=== PATIENT | female | born 1985 | race African-American/Black ===

== ENCOUNTER 2016-12-12 15:29 | Emergency (ER) | payer OTHER ==
[~2016-12-12] VITALS: Ht 177.8 cm; Wt 81.6 kg
[2016-12-12 16:41] LABS: BILIRUBIN,URINE SMALL (NEG); GLUCOSE,URINE NEGATIVE (NEG); NITRITE,URINE NEGATIVE (NEG); PROTEIN,URINE 100 mg/dL (NEG-TRACE); UROBILINOGEN,URINE 0.2 mg/dL (0.2 mg/dL)
[2016-12-12] MEDS ORDERED: IV NORMAL SALINE 1000ML BAG 1,000 ML IV ONE (16:45)
[2016-12-12 16:47] LABS: BARBITURATES NEG (NEG); BENZODIAZEPINES NEG (NEG); CANNABINOIDS POS (NEG); COCAINE NEG (NEG); METHADONE NEG (NEG); OPIATES NEG (NEG); PHENCYCLIDINE NEG (NEG)
[2016-12-12 16:48] LABS: BACTERIA,URINE FEW /HPF (0-FEW); RBC,URINE 0 /HPF (0-2); SQUAMOUS EPITHELIAL CELL,UR FEW /LPF
[2016-12-12 17:10] LABS: BASO # 0.1 x10^3/uL (0.0-0.2); BASO % 1 % (0-3); EOS % 1 % (0-3); HEMATOCRIT 35.4 % (36.0-47.0); HEMOGLOBIN 11.8 g/dL (12.0-15.5); LYMPH # 2.7 x10^3/uL (1.0-4.8); LYMPH % 23 % (24-48); MEAN CORPUSCULAR HEMOGLOBIN 32 pg (25-35); MEAN CORPUSCULAR HGB CONC 33 g/dL (31-37); MEAN CORPUSCULAR VOLUME 95 fL (79-100); MONO % 7 % (0-9); NEUT % 68 % (31-73); PLATELET COUNT 174 x10^3/uL (140-400); RED BLOOD COUNT 3.73 x10^6/uL (3.50-5.40); RED CELL DISTRIBUTION WIDTH 13.9 % (11.5-14.5); WHITE BLOOD COUNT 11.4 x10^3/uL (4.0-11.0)
[2016-12-12 17:24] LABS: CALCIUM 8.8 mg/dL (8.5-10.1); CREATININE 0.5 mg/dL (0.6-1.0); GFR 175.3; POTASSIUM 4.1 mmol/L (3.5-5.1)
[2016-12-12] MEDS ORDERED: ONDANSETRON PF 4 MG/2 ML VIAL. ONE (17:26)
[2016-12-12] MEDS ORDERED: ONDANSETRON PF 4 MG/2 ML VIAL. IV ONE (18:00)
[2016-12-12 18:34] VITALS: BP 114/63
--- NOTE | 2016-12-12 18:59 | PHYS DOC ---
Past Medical History Past Medical History: No Pertinent History Past Surgical History: No Surgical History Alcohol Use: None Drug Use: Marijuana Adult General Chief Complaint Chief Complaint: DIZZY/LIGHT HEADED HPI HPI Patient is a 31 year old female 2 para 2 who presents today with dizziness intermittently since yesterday and one time episode of vomiting. Patient states she does not know she is because her last menstrual cycle was in the beginning of July 2015. She states she did a test at home a couple months ago and it was positive but she never followed up about it. Patient denied any abdominal pain, urgency frequency or dysuria. She states she just feels tired. She states she would like a test. Review of Systems Review of Systems Constitutional: Denies fever or chills [] Eyes: Denies change in visual acuity, redness, or eye pain [] HENT: Denies nasal congestion or sore throat [] Respiratory: Denies cough or shortness of breath [] Cardiovascular: No additional information not addressed in HPI [] GI: Possible , vomiting : See history of present illness Musculoskeletal: Denies back pain or joint pain [] Integument: Denies rash or skin lesions [] Neurologic: Dizziness Endocrine: Denies polyuria or polydipsia [] Current Medications Current Medications Current Medications Medications (Trade) Dose Ordered Sig/Miguel Start Time Stop Time Status Last Admin Dose Admin Ondansetron HCl (Zofran) 4 mg 1X ONCE 12/12/16 18:00 12/12/16 18:01 DC 12/12/16 17:53 4 MG Sodium Chloride 1,000 ml @ 1,000 mls/hr 1X ONCE 12/12/16 16:45 12/12/16 17:44 DC 12/12/16 17:06 1,000 MLS/HR Allergies Allergies Allergies Coded Allergies Type Severity Reaction Last Updated Verified No Known Drug Allergies 12/12/16 No Physical Exam Physical Exam Constitutional: Well developed, well nourished, no acute distress, non-toxic appearance. [] HENT: Normocephalic, atraumatic, bilateral external ears normal, oropharynx moist, no oral exudates, nose normal. [] Eyes: PERRLA, EOMI, conjunctiva normal, no discharge. [] Neck: Normal range of motion, no tenderness, supple, no stridor. [] Cardiovascular:Heart rate regular rhythm, no murmur [] Lungs & Thorax: Bilateral breath sounds clear to auscultation [] Abdomen: Rounded abdomen suspicious for . Bowel sounds normal, soft, no tenderness, no masses, no pulsatile masses. [] Skin: Warm, dry, no erythema, no rash. [] Back: No tenderness, no CVA tenderness. [] Extremities: No tenderness, no cyanosis, no clubbing, ROM intact, no edema. [] Neurologic: Alert and oriented X 3, normal motor function, normal sensory function, no focal deficits noted. [] Psychologic: Affect normal, judgement normal, mood normal. [] Current Patient Data Vital Signs Vital Signs Date Time Temp Pulse Resp B/P (MAP) Pulse Ox O2 Delivery O2 Flow Rate FiO2 12/12/16 18:34 68 114/63 (80) 98 Room Air 12/12/16 16:29 98.6 18 98.6 Lab Values Laboratory Tests Test 12/12/16 16:26 12/12/16 17:02 Urine Collection Type Unknown Urine Color [place] Urine Clarity Turbid Urine pH 6.0 Urine Specific [place] >=1.030 Urine Protein 100 mg/dL (NEG-TRACE) Urine Glucose (UA) Negative mg/dL (NEG) Urine Ketones (Stick) 15 mg/dL (NEG) Urine Blood Negative (NEG) Urine Nitrite Negative (NEG) Urine Bilirubin Small (NEG) Urine Urobilinogen Dipstick 0.2 mg/dL (0.2 mg/dL) Urine Leukocyte Esterase Negative (NEG) Urine RBC 0 /HPF (0-2) Urine WBC 1-4 /HPF (0-4) Urine Squamous Epithelial Cells Few /LPF Urine Bacteria Few /HPF (0-FEW) Urine Mucus Marked /LPF Urine Opiates Screen Neg (NEG) Urine Methadone Screen Neg (NEG) Urine Barbiturates Neg (NEG) Urine Phencyclidine Screen Neg (NEG) Urine Amphetamine/Methamphetamine Neg (NEG) Urine Benzodiazepines Screen Neg (NEG) Urine Cocaine Screen Neg (NEG) Urine Cannabinoids Screen Pos (NEG) Urine Ethyl Alcohol Neg (NEG) White Blood Count 11.4 x10^3/uL (4.0-11.0) H Red Blood Count 3.73 x10^6/uL (3.50-5.40) Hemoglobin 11.8 g/dL (12.0-15.5) L Hematocrit 35.4 % (36.0-47.0) L Mean Corpuscular Volume 95 fL (79-100) Mean Corpuscular Hemoglobin 32 pg (25-35) Mean Corpuscular Hemoglobin Concent 33 g/dL (31-37) Red Cell Distribution Width 13.9 % (11.5-14.5) Platelet Count 174 x10^3/uL (140-400) Neutrophils (%) (Auto) 68 % (31-73) Lymphocytes (%) (Auto) 23 % (24-48) L Monocytes (%) (Auto) 7 % (0-9) Eosinophils (%) (Auto) 1 % (0-3) Basophils (%) (Auto) 1 % (0-3) Neutrophils # (Auto) 7.7 x10^3uL (1.8-7.7) Lymphocytes # (Auto) 2.7 x10^3/uL (1.0-4.8) Monocytes # (Auto) 0.8 x10^3/uL (0.0-1.1) Eosinophils # (Auto) 0.2 x10^3/uL (0.0-0.7) Basophils # (Auto) 0.1 x10^3/uL (0.0-0.2) Maternal Serum HCG Beta Subunit 3783 mIU/mL (0-6) H Sodium Level 139 mmol/L (136-145) Potassium Level 4.1 mmol/L (3.5-5.1) Chloride Level 105 mmol/L (98-107) Carbon Dioxide Level 24 mmol/L (21-32) Anion Gap 10 (6-14) Blood Urea Nitrogen 7 mg/dL (7-20) Creatinine 0.5 mg/dL (0.6-1.0) L Estimated GFR (Cockcroft-Gault) 175.3 Glucose Level 78 mg/dL (70-99) Calcium Level 8.8 mg/dL (8.5-10.1) Ethyl Alcohol Level < 10 mg/dL (0-10) Laboratory Tests 12/12/16 17:02 Laboratory Tests 12/12/16 17:02 EKG EKG [] Radiology/Procedures Radiology/Procedures []PROCEDURE: PREG MORE THAN OR EQ TO 14 WKS ultrasound more than or equal to 14 weeks HISTORY: Nausea, COMPARISON: No previous relevant examinations available FINDINGS: Multiple transabdominal sonographic images of the uterus are submitted. There is a single intrauterine fetus in cephalic presentation. Cervix measured 5.4 cm. There is posterior placenta. There is four-chamber view of the heart. There is detectable cardiac activity 158 bpm. No obvious abnormality is identified in the demonstrated spine. Lateral ventricle measures 0.4 cm. Cisterna magna measured 0.5 cm. Cerebellum measured 2.58 cm. There are more prominent right parametrial vessels, ovaries not demonstrated. No free fluid is demonstrated. 2 upper and lower extremities were visualized. There is visualization of stomach. There is three-vessel cord. 2 kidneys were seen. Amniotic fluid volume is within normal limits. Urinary bladder is visualized. Midline nose and lips were visualized. Biometry data are as follows: Biparietal diameter 6.03 cm corresponds with 24 weeks 4 days Head circumference 22.01 cm corresponds with 24 weeks 0 days Abdominal circumference 19.9 7 cm corresponds with 24 weeks 4 days. Femur length 4.3 cm corresponds with 24 weeks 2 days Estimated weight 699 g +/- 103 g. Adjusted ultrasound age 24 weeks 3 days with estimated delivery date of 03/31/2017. LMP data is not known. IMPRESSION: 1. There is a single viable intrauterine fetus, adjusted ultrasound age of 24 weeks 3 days with estimated delivery date 03/31/2017. Electronically signed by: Jason Fuentes MD (12/12/2016 7:41 PM) DICTATED and SIGNED BY: JASON FUENTES MD DATE: 12/12/161934 CC: PANCHITO ALFRED APRN; NO PCP; NON,STAFF ~ Course & Med Decision Making Course & Med Decision Making Pertinent Labs and Imaging studies reviewed. (See chart for details) This is a 31-year-old female patient who presents today stating she has had dizziness for 2 days and one episode of vomiting. Patient states her last menstrual cycle was June 2016. She states she did a test at home it was positive this was months ago but she never followed up. Patient denied any abdominal pain, vaginal bleeding, urgency frequency or dysuria. Positive urine hCG, [id number]. Wet prep with no acute findings. Urine analysis is negative for infection but noted for dehydration with specific gravity greater than 1.030, 15 ketones and small amount of bilirubin. Patient was given IV fluid and Zofran in the ED. OB ultrasound shows IUP at 24 wks 3 days. Patient has no complaints right now. She is very stable. I gave her an PRACTICAL NURSING FACULTY. She states she has another one she prefers to f/u with. Recommended she follows up as soon as she can. She was provided return precautions and discharged in stable condition. Dragon Disclaimer Dragon Disclaimer This electronic medical record was generated, in whole or in part, using a voice recognition dictation system. Departure Departure Impression: Primary Impression: Additional Impression: Vomiting affecting Disposition: HOME, SELF-CARE Condition: STABLE Referrals: NO PCP (PCP) NAE URENA Jr, MD Follow-up with the provided PRACTICAL NURSING FACULTY on Thursday next week Patient Instructions: ABCs of , Morning Sickness, [id number] Additional Instructions: Your ultrasound shows you are 24 weeks 2 days . We highly recommend you follow-up with the provided PRACTICAL NURSING FACULTY as soon as possible. We sent you home with medicines to help with nausea or vomiting. Push fluids. Take the medicines as needed. Come back to the ED at any point to have any concerns especially any vaginal bleeding and abdominal pain or worsening nausea vomiting. Scripts Promethazine Hcl (PROMETHAZINE HCL) 25 Mg Tablet 1 TAB PO PRN Q6HRS, #20 TAB Prov: PANCHITO ALFRED APRN 12/12/16 Ondansetron (ZOFRAN ODT) 4 Mg Tab.rapdis 1 TAB SL Q8HRS, #15 TAB Prov: PANCHITO ALFRED APRN 12/12/16 Problem Qualifiers Primary Impression: Weeks of gestation: 25 weeks Qualified Codes: Z3A.25 - 25 weeks gestation of PANCHITO ALFRED APRN December 12, 2016 18:59
--- NOTE | 2016-12-12 19:44 | RAD ---
ultrasound more than or equal to 14 weeks HISTORY: Nausea, COMPARISON: No previous relevant examinations available FINDINGS: Multiple transabdominal sonographic images of the uterus are submitted. There is a single intrauterine fetus in cephalic presentation. Cervix measured 5.4 cm. There is posterior placenta. There is four-chamber view of the heart. There is detectable cardiac activity 158 bpm. No obvious abnormality is identified in the demonstrated spine. Lateral ventricle measures 0.4 cm. Cisterna magna measured 0.5 cm. Cerebellum measured 2.58 cm. There are more prominent right parametrial vessels, ovaries not demonstrated. No free fluid is demonstrated. 2 upper and lower extremities were visualized. There is visualization of stomach. There is three-vessel cord. 2 kidneys were seen. Amniotic fluid volume is within normal limits. Urinary bladder is visualized. Midline nose and lips were visualized. Biometry data are as follows: Biparietal diameter 6.03 cm corresponds with 24 weeks 4 days Head circumference 22.01 cm corresponds with 24 weeks 0 days Abdominal circumference 19.9 7 cm corresponds with 24 weeks 4 days. Femur length 4.3 cm corresponds with 24 weeks 2 days Estimated weight 699 g +/- 103 g. Adjusted ultrasound age 24 weeks 3 days with estimated delivery date of 03/31/2017. LMP data is not known. IMPRESSION: 1. There is a single viable intrauterine fetus, adjusted ultrasound age of 24 weeks 3 days with estimated delivery date 03/31/2017. Electronically signed by: Fuad Ruiz MD (12/12/2016 7:41 PM)
[2016-12-12] MEDS ORDERED: ONDA4TAB10 SL (20:08)
[2016-12-12] MEDS ORDERED: PROM25TA10 PO (20:09)
== END 2016-12-12 20:36 | disposition home or self-care (01) ==
LOC: ER 15:29
DX: O21.9 Vomiting of pregnancy, unspecified (principal); R42 Dizziness and giddiness; F12.10 Cannabis abuse, uncomplicated; Z3A.24 24 weeks gestation of pregnancy
CPT/HCPCS: 36415; 76805; 80048; 80305; 80320; 81001; 81025; 84702; 85027; 96361; 96374; 99285; J2405; J7030; 84703; G0480; G0481

== ENCOUNTER 2017-02-04 17:43 | Inpatient (IN) | payer OTHER ==
[~2017-02-04 17:43] MED LIST: ONDA4TAB10 SL; PROM25TA10 PO
[2017-02-04 18:26] LABS: NEG OBC AMNIO NEG; POS OBC AMNIO POS
[2017-02-04] MEDS ORDERED: OXYTOCIN 30 UNIT/500 ML PREMIX 500 ML IV PRN (18:30)
[2017-02-04] MEDS ORDERED: LIDOCAINE 1% PF 30 ML VIAL. INJ PRN (18:30)
[2017-02-04] MEDS ORDERED: MAGNESIUM SULFATE 4GM 100 ML IV ONE (18:30)
[2017-02-04] MEDS ORDERED: fentaNYL PF VIAL 100 MCG/2 ML VIAL IV PRN (18:30)
[2017-02-04] MEDS ORDERED: MAGNESIUM SULFATE 2GM 50 ML IV ONE (18:30)
[2017-02-04] MEDS ORDERED: 0.9 % SODIUM CHLORIDE 10 ML DISP.SYRIN. IV PRN (18:30)
[2017-02-04] MEDS ORDERED: IBUPROFEN 600 MG TABLET. PO PRN (18:30)
[2017-02-04] MEDS ORDERED: TERBUTALINE 1 MG/ML VIAL. SQ PRN (18:30)
[2017-02-04] MEDS: IV RINGERS,LACTATED 1000ML 1,000 ML IV SCH (18:37)
[2017-02-04] MEDS ORDERED: IV RINGERS,LACTATED 1000ML 1,000 ML IV SCH (19:00)
[2017-02-04] MEDS ORDERED: MAGNESIUM SULFATE IV ONE (19:30)
[2017-02-04] MEDS ORDERED: BETAMET ACET&NA PHOS 30 MG/5 ML VIAL. IM SCH (19:30)
[2017-02-04] MEDS ORDERED: NORMAL SALINE IV ONE (19:30)
[2017-02-04 19:42] LABS: BILIRUBIN,URINE NEGATIVE (NEG); GLUCOSE,URINE NEGATIVE (NEG); NITRITE,URINE NEGATIVE (NEG); PROTEIN,URINE NEGATIVE (NEG-TRACE); UROBILINOGEN,URINE 0.2 mg/dL (0.2 mg/dL)
[2017-02-04 19:50] LABS: BARBITURATES NEG (NEG); BENZODIAZEPINES NEG (NEG); CANNABINOIDS POS (NEG); COCAINE NEG (NEG); METHADONE NEG (NEG); OPIATES NEG (NEG); PHENCYCLIDINE NEG (NEG)
[2017-02-04 19:53] LABS: BACTERIA,URINE 0 /HPF (0-FEW); RBC,URINE 0 /HPF (0-2); SQUAMOUS EPITHELIAL CELL,UR FEW /LPF; WBC,URINE 0 /HPF (0-4)
[2017-02-04] MEDS: MAGNESIUM SULFATE 20GM 500 ML IV SCH (19:54)
[2017-02-04] MEDS: AMPICILLIN SODIUM 2 GM in IV NORMAL SALINE 100ML 100 ML IV SCH (19:55)
[2017-02-04 20:26] LABS: BASO # 0.1 x10^3/uL (0.0-0.2); BASO % 1 % (0-3); EOS % 2 % (0-3); HEMATOCRIT 32.2 % (36.0-47.0); HEMOGLOBIN 10.6 g/dL (12.0-15.5); LYMPH # 1.9 x10^3/uL (1.0-4.8); LYMPH % 16 % (24-48); MEAN CORPUSCULAR HEMOGLOBIN 31 pg (25-35); MEAN CORPUSCULAR HGB CONC 33 g/dL (31-37); MEAN CORPUSCULAR VOLUME 95 fL (79-100); MONO % 9 % (0-9); NEUT % 73 % (31-73); PLATELET COUNT 165 x10^3/uL (140-400); RED CELL DISTRIBUTION WIDTH 14.2 % (11.5-14.5); WHITE BLOOD COUNT 12.3 x10^3/uL (4.0-11.0)
[2017-02-04] MEDS: ERYTHROMYCIN LACT 250 MG in IV NORMAL SALINE 100ML 100 ML IV SCH (21:08)
--- NOTE | 2017-02-04 21:20 | RAD ---
Limited OB ultrasound study HISTORY: Premature rupture of membranes. EDC is March 31, 2017. Evaluation for position and size and and fluid index. FINDINGS: Single intrauterine fetus is seen in breech presentation. heart rate is 136 bpm. BPD is 7.99 cm which equals 32 weeks 1 day. HC is 29.51 cm which equals 32 weeks 4 days. AC is 27.46 cm which equals 31 weeks 4 days. FL is 6.06 cm which equals 31 weeks 4 days. Average gestational age by ultrasound is 32 weeks 0 days +/- 3 weeks with an EDC of April 01, 2017. This corresponds to the clinical age with an LMP of June 24, 2016. Estimated weight is 4 lbs. 0 oz. The anatomy was not evaluated on this study. VALERIO using the 4 quadrant method is 9.5. Cervix is not visualized. IMPRESSION: Single IUP in breech presentation with gestational age of 32 weeks. heart rate is 136 bpm. VALERIO is 9.5 which is normal. Visually, the amniotic fluid volume appears decreased however. The cervix is not visualized in this study. Cervical length may be further evaluated with transvaginal exam if clinically needed. Electronically signed by: Jeff Conley MD (02/04/2017 9:17 PM) [facility]
[2017-02-05] MEDS: IV RINGERS,LACTATED 1000ML 1,000 ML IV SCH (00:57)
[2017-02-05] MEDS: AMPICILLIN SODIUM 2 GM in IV NORMAL SALINE 100ML 100 ML IV SCH ×3 (03:15→14:30)
[2017-02-05] MEDS: ERYTHROMYCIN LACT 250 MG in IV NORMAL SALINE 100ML 100 ML IV SCH ×3 (03:16→15:26)
[2017-02-05] MEDS: MAGNESIUM SULFATE 20GM 500 ML IV SCH ×2 (05:28→15:26)
[2017-02-06 07:30] LABS: RPR REFLEX Non Reactive (Non Reactive)
[2017-02-06] MEDS ORDERED: AMOXICILLIN 250 MG CAPSULE. PO SCH (23:30)
== END 2017-02-05 17:15 | disposition short-term general hospital (02) | DRG 782 ==
LOC: 3 SO LND 17:43 → OBSVTOIN 18:49
PROVIDERS: ADMIT Specialist; ATTEND Specialist
DX: O42.913 Preterm premature rupture of membranes, unspecified as to length of time between rupture and onset of labor, third trimester (principal); O32.1XX0 Maternal care for breech presentation, not applicable or unspecified; Z3A.32 32 weeks gestation of pregnancy
CPT/HCPCS: 36415; 76815; 81001; 84112; 85027; 86593; 86850; 86900; 86901; 87653; C1887; G0379; G0481; J0290; J0702; J1364; J3475; J7120

== ENCOUNTER 2018-02-20 00:42 | Emergency (ER) | payer SELFPAY, OTHER | END 2018-02-20 03:09 | disposition home or self-care (01) | LOC: ER 00:42 | DX: S02.5XXA Fracture of tooth (traumatic), initial encounter for closed fracture (principal); K02.9 Dental caries, unspecified; X58.XXXA Exposure to other specified factors, initial encounter; Y93.89 Activity, other specified; Y92.89 Other specified places as the place of occurrence of the external cause; Y99.8 Other external cause status | CPT/HCPCS: 99283 ==

== ENCOUNTER 2018-05-19 21:43 | Emergency (ER) | payer OTHER ==
[~2018-05-19] VITALS: Ht 177.8 cm; Wt 77.1 kg
[~2018-05-19 21:43] MED LIST changes: +AMOX500C PO; +HYDR-971 PO
[2018-05-19 22:34] LABS: BILIRUBIN,URINE NEGATIVE (NEG); CLARITY,URINE CLEAR; COLOR,URINE YELLOW; NITRITE,URINE NEGATIVE (NEG); PROTEIN,URINE NEGATIVE (NEG-TRACE); UROBILINOGEN,URINE 0.2 mg/dL (0.2 mg/dL)
[2018-05-19 22:41] LABS: BACTERIA,URINE FEW /HPF (0-FEW); RBC,URINE OCC /HPF (0-2); SQUAMOUS EPITHELIAL CELL,UR MOD /LPF; WBC,URINE OCC /HPF (0-4)
[2018-05-19 23:44] VITALS: BP 97/51
--- NOTE | 2018-05-20 04:00 | PHYS DOC ---
Past Medical History Past Medical History: Anxiety, Depression Past Surgical History: No Surgical History Alcohol Use: None Drug Use: Marijuana Adult General Chief Complaint Chief Complaint: ABDOMINAL PAIN IN [facility] HPI Patient is a 32 year old female who presents with abdominal pain in . Patient is close to 18 or 19 weeks gestation based on her last menstrual period. She is a . She has had no care. Today, she presents to the ER complaining of some diffuse crampy type discomfort in her abdomen. The symptoms have been diffuse but primarily on the right upper. She does feel that her abdomen is larger compared to other pregnancies and she feels more uncomfortable because of this. No fever or chills. No urinary symptoms. Denies pelvic pain. No bleeding or discharge. The patient also has some concerns that she could have a twin gestation. She primarily presents to the ER requesting ultrasound. Review of Systems Review of Systems Constitutional: Denies fever or chills Eyes: Denies change in visual acuity HENT: Denies nasal congestion or sore throat Respiratory: Denies cough or shortness of breath Cardiovascular: No additional information not addressed in HPI GI: Denies nausea or vomiting : Denies dysuria Musculoskeletal: Denies back pain Integument: Denies rash Neurologic: Denies headache Endocrine: Denies polyuria All other systems were reviewed and found to be within normal limits, except as documented in this note. Allergies Allergies Allergies Coded Allergies Type Severity Reaction Last Updated Verified No Known Drug Allergies 12/12/16 No Physical Exam Physical Exam Constitutional: Well developed, well nourished, no acute distress, non-toxic appearance HENT: Normocephalic, atraumatic, bilateral external ears normal, oropharynx moist Eyes: PERRLA, EOMI Neck: Normal range of motion, no tenderness Cardiovascular:Heart rate regular rhythm, no murmur Lungs & Thorax: Bilateral breath sounds clear to auscultation Abdomen: soft, NTTP, appropriately gravid, no guarding or rebound Skin: Warm, dry, no erythema, no rash Back: No tenderness, no CVA tenderness Extremities: No edema Neurologic: Alert and oriented X 3 Psychologic: Affect normal Current Patient Data Vital Signs Vital Signs Date Time Temp Pulse Resp B/P (MAP) Pulse Ox O2 Delivery O2 Flow Rate FiO2 05/19/18 23:44 61 97/51 (66) Room Air 05/19/18 23:14 100 10/31/18 22:05 98.0 16 98.0 Lab Values Laboratory Tests Test 05/19/18 22:14 05/19/18 22:27 Urine Collection Type Unknown Urine Color Yellow Urine Clarity Clear Urine pH 8.0 Urine Specific [place] 1.020 Urine Protein Negative mg/dL (NEG-TRACE) Urine Glucose (UA) Negative mg/dL (NEG) Urine Ketones (Stick) Negative mg/dL (NEG) Urine Blood Negative (NEG) Urine Nitrite Negative (NEG) Urine Bilirubin Negative (NEG) Urine Urobilinogen Dipstick 0.2 mg/dL (0.2 mg/dL) Urine Leukocyte Esterase Negative (NEG) Urine RBC Occ /HPF (0-2) Urine WBC Occ /HPF (0-4) Urine Squamous Epithelial Cells Mod /LPF Urine Bacteria Few /HPF (0-FEW) Urine Mucus Mod /LPF POC Urine HCG, Qualitative Hcg positive (Negative) EKG EKG [] Radiology/Procedures Radiology/Procedures [] Course & Med Decision Making Course & Med Decision Making Pertinent Labs and Imaging studies reviewed. (See chart for details) Patient is evaluated in the ER requesting ultrasound examination to r/o multiple . No additional acute symptoms. No indication this evening for stat formal US. Bedside US is completed and revealing for an advanced age IUP. FHT's 140's. Frequent movements. No multiples seen. Patient is discharged to home. Follow up with on-call OB, Dr. Lee. Return to ER for any worsening symptoms. Dragon Disclaimer Dragon Disclaimer This electronic medical record was generated, in whole or in part, using a voice recognition dictation system. Departure Departure Impression: Primary Impression: Abdominal pain affecting Additional Impression: Disposition: 01 HOME, SELF-CARE Condition: GOOD Referrals: NAE LEE Jr, MD Patient Instructions: Abdominal Pain During Problem Qualifiers JOANNA DOWELL DO May 20, 2018 04:00
== END 2018-05-20 00:25 | disposition home or self-care (01) ==
LOC: ER 21:43
DX: O99.89 Other specified diseases and conditions complicating pregnancy, childbirth and the puerperium (principal); R10.84 Generalized abdominal pain; O99.342 Other mental disorders complicating pregnancy, second trimester; F41.8 Other specified anxiety disorders; Z3A.19 19 weeks gestation of pregnancy
CPT/HCPCS: 81001; 81025; 99283

== ENCOUNTER 2018-07-05 00:45 | Emergency (ER) | payer OTHER ==
[~2018-07-05] VITALS: Ht 177.8 cm; Wt 77.1 kg
[~2018-07-05 00:45] MED LIST changes: +HYDR-3164 PO; -HYDR-971 PO
[2018-07-05] MEDS ORDERED: LIDO:MAALOX 1:1 20 ML SINGLE DOSE. PO ONE (02:15)
[2018-07-05 02:25] LABS: BASE EXCESS COOX 1 mmol/L (-3-3); HCO3 COOX 23 mmol/L (21-28); PCO2 COOX 28 mmHg (35-46); PO2 COOX 112 mmHg (85-108); SAT O2 COOX 98 % (92-99)
[2018-07-05 02:46] LABS: BILIRUBIN,URINE NEGATIVE (NEG); CLARITY,URINE CLEAR; COLOR,URINE YELLOW; NITRITE,URINE NEGATIVE (NEG); PH,URINE 7.5; PROTEIN,URINE NEGATIVE (NEG-TRACE); UROBILINOGEN,URINE 0.2 mg/dL (0.2 mg/dL)
[2018-07-05 02:46] LABS: BASO % 1 % (0-3); EOS # 0.1 x10^3/uL (0.0-0.7); EOS % 1 % (0-3); HEMATOCRIT 34.1 % (36.0-47.0); HEMOGLOBIN 11.7 g/dL (12.0-15.5); LYMPH # 1.2 x10^3/uL (1.0-4.8); LYMPH % 17 % (24-48); MEAN CORPUSCULAR HEMOGLOBIN 32 pg (25-35); MEAN CORPUSCULAR HGB CONC 34 g/dL (31-37); MEAN CORPUSCULAR VOLUME 94 fL (79-100); MONO # 0.7 x10^3/uL (0.0-1.1); MONO % 10 % (0-9); NEUT # 5.2 x10^3uL (1.8-7.7); NEUT % 72 % (31-73); PLATELET COUNT 167 x10^3/uL (140-400); RED BLOOD COUNT 3.62 x10^6/uL (3.50-5.40); RED CELL DISTRIBUTION WIDTH 13.7 % (11.5-14.5); WHITE BLOOD COUNT 7.3 x10^3/uL (4.0-11.0)
[2018-07-05 02:52] LABS: CALCIUM 9.3 mg/dL (8.5-10.1); CREATININE 0.7 mg/dL (0.6-1.0); GFR 118.1; POTASSIUM 3.9 mmol/L (3.5-5.1)
[2018-07-05 03:04] LABS: BACTERIA,URINE 0 /HPF (0-FEW); RBC,URINE 0 /HPF (0-2); SQUAMOUS EPITHELIAL CELL,UR FEW /LPF; WBC,URINE OCC /HPF (0-4)
[2018-07-05 03:30] VITALS: BP 125/67
--- NOTE | 2018-07-05 06:21 | PHYS DOC ---
Past Medical History Past Medical History: Anxiety, Depression Past Surgical History: No Surgical History Alcohol Use: None Drug Use: Marijuana Adult General Chief Complaint Chief Complaint: CHEST PAIN-CARDIAC NATURE HPI HPI Patient is a 32 year old female who presents with concerns about exposure to carbon monoxide. Patient states she is having problems with the exhaust on her car. She endorses that every time she drives her car she is exposed to the fumes from her exhaust due to some problem with her exhaust system. When this happens, she endorses some tightness sensation in her chest as well as some intermittent nausea and some headaches. She states she has these symptoms every time she drives her car over the last week to 2 weeks. She is 26 weeks' gestation. She is a . She presents to the ER this evening because she has concerns about some accumulating carbon monoxide poisoning in her system. She also endorses some reflux symptoms over the same time. She states this is normal when she has active . No severe shortness of breath. No headaches at this time. No chest pain that is persistent. Review of Systems Review of Systems Constitutional: Denies fever or chills Eyes: Denies change in visual acuity HENT: Denies nasal congestion Respiratory: Denies cough or shortness of breath Cardiovascular: No additional information not addressed in HPI GI: Denies abdominal pain : Denies dysuria Musculoskeletal: Denies back pain Integument: Denies rash or skin lesions Neurologic: Denies headache Endocrine: Denies polyuria All other systems were reviewed and found to be within normal limits, except as documented in this note. Current Medications Current Medications Current Medications Medications (Trade) Dose Ordered Sig/Miguel Start Time Stop Time Status Last Admin Dose Admin Multi-Ingredient Mouthwash/Gargle (Gi Cocktail) 20 ml 1X ONCE 07/05/18 02:15 07/05/18 02:16 DC 07/05/18 02:34 20 ML Allergies Allergies Allergies Coded Allergies Type Severity Reaction Last Updated Verified No Known Drug Allergies 12/12/16 No Physical Exam Physical Exam Constitutional: Well developed, well nourished, no acute distress, non-toxic appearance HENT: Normocephalic, atraumatic, bilateral external ears normal, oropharynx moist Eyes: PERRLA, EOMI, conjunctiva normal Neck: Normal range of motion, no tenderness Cardiovascular:Heart rate regular rhythm, no murmur Lungs & Thorax: Bilateral breath sounds clear to auscultation Abdomen: Bowel sounds normal, soft, no tenderness, appropriately gravid Skin: Warm, dry, no erythema, no rash Back: No tenderness Extremities: ROM intact, no edema Neurologic: Alert and oriented X 3, normal motor function, normal sensory function, no focal deficits noted Psychologic: Affect normal Current Patient Data Vital Signs Vital Signs Date Time Temp Pulse Resp B/P (MAP) Pulse Ox O2 Delivery O2 Flow Rate FiO2 07/05/18 03:30 87 24 125/67 (86) 99 Room Air 07/05/18 00:50 97.5 97.5 Lab Values Laboratory Tests Test 07/05/18 01:12 07/05/18 02:25 07/05/18 02:30 O2 Saturation 98 % (92-99) Arterial Blood pH 7.52 (7.35-7.45) H Arterial Blood pCO2 at Patient Temp 28 mmHg (35-46) L Arterial Blood pO2 at Patient Temp 112 mmHg (85-108) H Arterial Blood HCO3 23 mmol/L (21-28) Arterial Blood Base Excess 1 mmol/L (-3-3) Thom Test Pos Carbon Monoxide, Quantitative 2.0 % (0.0-1.9) H FiO2 21 White Blood Count 7.3 x10^3/uL (4.0-11.0) Red Blood Count 3.62 x10^6/uL (3.50-5.40) Hemoglobin 11.7 g/dL (12.0-15.5) L Hematocrit 34.1 % (36.0-47.0) L Mean Corpuscular Volume 94 fL (79-100) Mean Corpuscular Hemoglobin 32 pg (25-35) Mean Corpuscular Hemoglobin Concent 34 g/dL (31-37) Red Cell Distribution Width 13.7 % (11.5-14.5) Platelet Count 167 x10^3/uL (140-400) Neutrophils (%) (Auto) 72 % (31-73) Lymphocytes (%) (Auto) 17 % (24-48) L Monocytes (%) (Auto) 10 % (0-9) H Eosinophils (%) (Auto) 1 % (0-3) Basophils (%) (Auto) 1 % (0-3) Neutrophils # (Auto) 5.2 x10^3uL (1.8-7.7) Lymphocytes # (Auto) 1.2 x10^3/uL (1.0-4.8) Monocytes # (Auto) 0.7 x10^3/uL (0.0-1.1) Eosinophils # (Auto) 0.1 x10^3/uL (0.0-0.7) Basophils # (Auto) 0.0 x10^3/uL (0.0-0.2) Sodium Level 138 mmol/L (136-145) Potassium Level 3.9 mmol/L (3.5-5.1) Chloride Level 104 mmol/L (98-107) Carbon Dioxide Level 27 mmol/L (21-32) Anion Gap 7 (6-14) Blood Urea Nitrogen 10 mg/dL (7-20) Creatinine 0.7 mg/dL (0.6-1.0) Estimated GFR (Cockcroft-Gault) 118.1 Glucose Level 79 mg/dL (70-99) Calcium Level 9.3 mg/dL (8.5-10.1) Troponin I Quantitative < 0.017 ng/mL (0.000-0.055) Urine Collection Type Unknown Urine Color Yellow Urine Clarity Clear Urine pH 7.5 Urine Specific [place] 1.010 Urine Protein Negative mg/dL (NEG-TRACE) Urine Glucose (UA) Negative mg/dL (NEG) Urine Ketones (Stick) Negative mg/dL (NEG) Urine Blood Negative (NEG) Urine Nitrite Negative (NEG) Urine Bilirubin Negative (NEG) Urine Urobilinogen Dipstick 0.2 mg/dL (0.2 mg/dL) Urine Leukocyte Esterase Negative (NEG) Urine RBC 0 /HPF (0-2) Urine WBC Occ /HPF (0-4) Urine Squamous Epithelial Cells Few /LPF Urine Bacteria 0 /HPF (0-FEW) Urine Mucus Slight /LPF Laboratory Tests 07/05/18 02:25 Laboratory Tests 07/05/18 02:25 EKG EKG [] Radiology/Procedures Radiology/Procedures [] Course & Med Decision Making Course & Med Decision Making Pertinent Labs and Imaging studies reviewed. (See chart for details) Patient was evaluated in the ER for possible carbon monoxide exposure. She had an ABG with co-ox panel completed by her carbon monoxide level was only 2%. Patient had no other acute findings on her physical exam. She had an EKG which was negative also for acute findings. Troponin was not elevated. heart tones were checked in the ER and were found to be 165. The patient had no edema. No focal neuro complaints. Patient was given a GI cocktail in the ER. Her symptoms were entirely resolved. She was discharged to home. Advised to follow-up with primary care doctor or return to the ER for any new or worsening symptoms. Dragon Disclaimer Dragon Disclaimer This electronic medical record was generated, in whole or in part, using a voice recognition dictation system. Departure Departure Impression: Primary Impression: Exposure to carbon monoxide Disposition: 01 HOME, SELF-CARE Condition: GOOD Patient Instructions: Gastroesophageal Reflux Disease, Adult, Carbon Monoxide, Protecting Yourself Following an Emergency JOANNA DOWELL DO Jul 05, 2018 06:21
--- NOTE | 2018-07-05 07:01 | EKG ---
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
== END 2018-07-05 03:40 | disposition home or self-care (01) ==
LOC: ER 00:45
DX: O26.893 Other specified pregnancy related conditions, third trimester (principal); Z77.098 Contact with and (suspected) exposure to other hazardous, chiefly nonmedicinal, chemicals; Z3A.26 26 weeks gestation of pregnancy
CPT/HCPCS: 36415; 36600; 80048; 81001; 82805; 84484; 85025; 93005; 99284

== ENCOUNTER 2019-01-12 13:26 | Emergency (ER) | payer OTHER ==
[~2019-01-12] VITALS: Ht 175.3 cm; Wt 68.9 kg
[2019-01-12 13:49] VITALS: BP 129/81
[2019-01-12] MEDS ORDERED: ACETAMINOPHEN 500 MG TABLET PO ONE (14:15)
[2019-01-12] MEDS ORDERED: KETOROLAC 60 MG/2 ML VIAL. IM ONE (14:15)
--- NOTE | 2019-01-12 14:19 | PHYS DOC ---
Past Medical History Past Medical History: Anxiety, Depression Past Surgical History: No Surgical History Smoking: Cigarettes, Less than 1pk/day Alcohol Use: Occasionally Drug Use: Marijuana Adult General Chief Complaint Chief Complaint: WOUND CHECK [facility] HPI Patient is a 33 year old female who presents with wound check. Had abscess drained yesterday at [facility] in the ER. This is located in her epigastric region on her chest. Patient was concerned of the did not prescribe her an antibiotic. Also states that she needs pain medicine. It's her pain as 6 out of 10. Has been taking ibuprofen at home. Review of Systems Review of Systems Constitutional: Denies fever or chills [] Eyes: Denies change in visual acuity, redness, or eye pain [] HENT: Denies nasal congestion or sore throat [] Respiratory: Denies cough or shortness of breath [] Cardiovascular: No additional information not addressed in HPI [] GI: Denies abdominal pain, nausea, vomiting, bloody stools or diarrhea [] : Denies dysuria or hematuria [] Musculoskeletal: Denies back pain or joint pain [] Integument: Denies rash or skin lesions with exception of abscess that is packed with sterile gauze on her chest. Neurologic: Denies headache, focal weakness or sensory changes [] Endocrine: Denies polyuria or polydipsia [] Complete systems were reviewed and found to be within normal limits, except as documented in this note. Allergies Allergies Allergies Coded Allergies Type Severity Reaction Last Updated Verified No Known Drug Allergies 12/12/16 No Physical Exam Physical Exam Constitutional: Well developed, well nourished, no acute distress, non-toxic appearance. [] HENT: Normocephalic, atraumatic, bilateral external ears normal, oropharynx moist, no oral exudates, nose normal. [] Eyes: PERRLA, EOMI, conjunctiva normal, no discharge. [] Neck: Normal range of motion, no tenderness, supple, no stridor. [] Cardiovascular:Heart rate regular rhythm, no murmur [] Lungs & Thorax: Bilateral breath sounds clear to auscultation [] Abdomen: Bowel sounds normal, soft, no tenderness, no masses, no pulsatile masses. [] Skin: Warm, dry, no erythema, no rash. Abscess on her chest that is packed with packing, no erythema or signs of cellulitis. Back: No tenderness, no CVA tenderness. [] Extremities: No tenderness, no cyanosis, no clubbing, ROM intact, no edema. [] Neurologic: Alert and oriented X 3, normal motor function, normal sensory function, no focal deficits noted. [] Psychologic: Affect normal, judgement normal, mood normal. [] Current Patient Data Vital Signs Vital Signs Date Time Temp Pulse Resp B/P (MAP) Pulse Ox O2 Delivery O2 Flow Rate FiO2 01/12/19 13:49 97.8 50 18 129/81 (97) 99 Room Air 97.8 EKG EKG [] Radiology/Procedures Radiology/Procedures [] Course & Med Decision Making Course & Med Decision Making Pertinent Labs and Imaging studies reviewed. (See chart for details) Discussed with patient to take Tylenol and Ibuprofen together at home. Discussed that narcotics are not indicated and does not need PO antibiotics at this time. Patient has appointment at her primary care doctor tomorrow to have packing removed. Dragon Disclaimer Dragon Disclaimer This electronic medical record was generated, in whole or in part, using a voice recognition dictation system. Departure Departure Impression: Primary Impression: Abscess Disposition: HOME, SELF-CARE Condition: STABLE Referrals: YADIRA MCKEON (PCP) Patient Instructions: Abscess, Abscess, Care After, Abscess, [id number] Additional Instructions: Thank you for visiting [facility]. We appreciate you trusting us with your care. If any additional problems come up don't hesitate to return to visit us. Please follow up with your primary care provider so they can plan additional care if needed and know about the problem that you had. If symptoms worsen come back to the Emergency Department. Any concerning symptoms that start such as chest pain, shortness of Air, weakness or numbness on one side of the body, running high fevers or any other concerning symptoms return to the ER. Please keep wound clean, dry, have packing removed tomorrow, can use topical Neosporin on abscess. MIGUELINA HAND APRN Jan 12, 2019 14:19
== END 2019-01-12 14:32 | disposition home or self-care (01) ==
LOC: ER 13:26
DX: Z48.01 Encounter for change or removal of surgical wound dressing (principal); F17.210 Nicotine dependence, cigarettes, uncomplicated
CPT/HCPCS: 96372; 99283; J1885

== ENCOUNTER 2021-01-11 00:40 | Emergency (ER) | payer OTHER ==
[~2021-01-11] VITALS: Ht 175.3 cm; Wt 77.0 kg
--- NOTE | 2021-01-11 03:06 | RAD ---
EXAMINATION: XR CHEST 2V CLINICAL HISTORY: Cough EXAM DATE/TIME: 01/11/2021 2:44 AM COMPARISON: None FINDINGS: Lines, Tubes, and Devices: None. Cardiomediastinal Silhouette: Within normal limits. Lungs and Pleura: No evidence of focal airspace consolidation or pleural effusion. Pulmonary vasculat ure unremarkable. Bones and Soft Tissues: No acute osseous abnormality. IMPRESSION: No evidence of acute cardiopulmonary abnormality. Electronically signed by: Jayden Tai DO (01/11/2021 3:04 AM) JOEY
[2021-01-11] MEDS ORDERED: BENZ100C PO (04:12)
--- NOTE | 2021-01-11 04:13 | PHYS DOC ---
Past Medical History Past Medical History: Anxiety, Depression Past Surgical History: Smoking Status: Current Every Day Smoker Alcohol Use: None Drug Use: Marijuana General Adult EDM: Chief Complaint: SORE THROAT HPI: HPI: Patient is a 35 year old female with history of depression presents emergency department for sore throat and cough. Patient reports she has had sore throat and cough for the past 3 to 4 days. Cough is nonproductive. Sore throat worse with swallowing. She reports that she has small children at home and they have had colds the past couple days. No Covid exposure that she knows of. She did not get vaccinated. No ear pain sinus congestion or vision problems. Patient denies fever chills chest pain shortness of breath abdominal pain nausea vomiting diarrhea constipation headache numbness or weakness. Patient does smoke marijuana occasionally. Does not smoke tobacco or drink alcohol. No drug use. Review of Systems: Review of Systems: Review of Systems: Constitutional: Denies fever or chills Eyes: Denies redness or eye pain HENT: Denies nasal congestion Respiratory: Denies shortness of breath Cardiovascular: Denies chest pain or palpitations GI: denies abdominal pain and nausea, denies vomiting or diarrhea : Denies dysuria or hematuria Musculoskeletal: Denies back pain or joint pain Integument: Denies rash or skin lesions Neurologic: Denies headache, focal weakness or sensory changes Heart Score: C/O Chest Pain: No Allergies: Allergies: Allergies Coded Allergies Type Severity Reaction Last Updated Verified No Known Drug Allergies 12/12/16 No Physical Exam: PE: *GENERAL APPEARANCE: Awake and alert. Cooperative. No acute distress. Non toxic appearing. HEAD: Normocephalic. Atraumatic. EYES: EOM's grossly intact. Sclera anicteric. Conjunctiva clear ENT:. Airway patent. Mucous membranes moist. No trismus. Tolerating secretions. Mild pharyngeal erythema. No tonsillar hypertrophy or exudates. No uvular deviation. No muffled voice trismus. Tolerating secretions. Normal dentition. No tongue swelling. Tympanic membranes, external auditory canals, external ear and mastoids are normal. NECK: Supple. No meningismus. Range of motion normal without pain. Trachea midline. HEART: Regular rate and rhythm. Radial pulses 2+. Good capillary refill. LUNGS: Respirations unlabored. Clear to auscultation bilaterally. No rales, rhonchi, wheezing or retractions. ABDOMEN: Soft. Non-tender. No guarding or rebound. No CVA tenderness. No palpable or pulsatile mass. EXTREMITIES: No acute deformities. No edema, erythema or calf tenderness. SKIN: Warm and dry. No rash. NEUROLOGICAL: Alert and oriented x3. No gross neurological deficits. Moves all 4 extremities spontaneously. PSYCHIATRIC: Normal mood. Current Patient Data: Vital Signs: Vital Signs Date Time Temp Pulse Resp B/P (MAP) Pulse Ox O2 Delivery O2 Flow Rate FiO2 01/11/21 01:30 98.5 70 18 104/66 (79) 99 Room Air 98.5 EKG: EKG: [] Radiology/Procedures: Radiology/Procedures: []PATIENT: ROSALIO RODRIGUEZ NACCOUNT: [id number]#: [id number] : 1985 LOCATION: ER AGE: 35 SEX: F EXAM STATUS: REG ER ORD. PHYSICIAN: RAMIN BISHOP DO REASON: cough PROCEDURE: CHEST PA & LATERAL EXAMINATION: XR CHEST 2V CLINICAL HISTORY: Cough EXAM DATE/TIME: 01/11/2021 2:44 AM COMPARISON: None FINDINGS: Lines, Tubes, and Devices: None. Cardiomediastinal Silhouette: Within normal limits. Lungs and Pleura: No evidence of focal airspace consolidation or pleural effusion. Pulmonary vasculature unremarkable. Bones and Soft Tissues: No acute osseous abnormality. IMPRESSION: No evidence of acute cardiopulmonary abnormality. Electronically signed by: Jayden Tai DO (01/11/2021 3:04 AM) [facility] Course & Med Decision Making: Course & Med Decision Making Pertinent Labs and Imaging studies reviewed. (See chart for details) [] Medical decision making: This is a 35-year-old female presents with cough and sore throat for several days after being exposed to her small children who have similar symptoms. Here in the emergency department patient appears in no acute distress. Her vital signs are stable. She is afebrile. Patient can range her neck without difficulty. She is having no headache. She has some mild pharyngeal erythema without exudates. Strep was negative. Chest x-ray showed no acute cardiopulmonary disease. On reevaluation patient is sleeping c omfortably. I had discussion with patient breath symptoms findings and lab results. At this point recommend symptomatic treatment. Will give something for cough. Is instructed to be reevaluated in 1 to 2 days or sooner if symptoms do not improve. The patient is given strict emergency department return precautions and follow up information. They express a verbal understanding of my instructions. The patient is aware of any labs and imaging. All questions are answered and patient is stable at the time of discharge. I have spoken to the patient and/or caregivers. I have explained the patient's condition, diagnoses and treatment plan based on the information available to me at this time. I have answered the patient and/or caregiver's questions and addressed any concerns. The patient and/or caregiver has a good understanding of the patient's diagnosis, condition and treatment plan as can be expected at this point. The vital signs have been stable. The patient's condition is stable and appropriate for discharge from the emergency department. The patient will perfuse to further outpatient evaluation with primary care physician and/or other designated or consulting physicians as outlined in the discharge instructions. The patient and/or caregivers are agreeable to this plan and in the care follow-up instructions have been explained in detail. The patient and/or caregivers have received these instructions in written format and have expressed an understanding of the discharge instructions. The patient and/or caregivers are aware that any significant change in condition or worsening of symptoms should prompt an immediate return to this or the closest emergency department or a call to 911. Discharged to home Date: January 11, 2021 Condition: Stable August Disclaimer: August Disclaimer: This electronic medical record was generated, in whole or in part, using a voice recognition dictation system. Departure Departure Impression: Primary Impression: Pharyngitis Additional Impression: Cough Disposition: HOME / SELF CARE / HOMELESS Condition: STABLE Referrals: NO PCP (PCP) Patient Instructions: Cough, Adult, Cough, Adult, [id number], Viral Pharyngitis Additional Instructions: Please follow-up with family physician in 24 to 48 hours. Please return to the emergency room sooner if symptoms worsen. Scripts Benzonatate (TESSALON PERLE) 100 Mg Capsule 1 CAP PO TID PRN for COUGH, #21 CAP Prov: RAMIN BISHOP DO 01/11/21 RAMIN BISHOP DO Jan 11, 2021 04:13
[2021-01-11 04:19] VITALS: BP 100/60
== END 2021-01-11 04:47 | disposition home or self-care (01) ==
LOC: ER 00:40
DX: J02.9 Acute pharyngitis, unspecified (principal); R05 Cough; F41.9 Anxiety disorder, unspecified; F32.9 Major depressive disorder, single episode, unspecified; F17.200 Nicotine dependence, unspecified, uncomplicated; Z98.890 Other specified postprocedural states
CPT/HCPCS: 71046; 87070; 87880; 99285